=== PATIENT | male | born 1950 | race Caucasian/White ===

== ENCOUNTER 2021-10-17 12:36 | Outpatient (RCR) | payer MEDICARE, SELFPAY | END 2022-04-13 14:30 | disposition home or self-care (01) | LOC: HO.WCC 12:36 | PROVIDERS: PCP Internal Medicine; Visit Provider Physician Assistant | DX: E11.621 Type 2 diabetes mellitus with foot ulcer (principal); L97.522 Non-pressure chronic ulcer of other part of left foot with fat layer exposed; T87.81 Dehiscence of amputation stump; E11.51 Type 2 diabetes mellitus with diabetic peripheral angiopathy without gangrene; E11.610 Type 2 diabetes mellitus with diabetic neuropathic arthropathy; E11.40 Type 2 diabetes mellitus with diabetic neuropathy, unspecified; E11.69 Type 2 diabetes mellitus with other specified complication; M86.472 Chronic osteomyelitis with draining sinus, left ankle and foot; I25.2 Old myocardial infarction; Z87.891 Personal history of nicotine dependence; Z89.422 Acquired absence of other left toe(s) | CPT/HCPCS: 11042; 97597; 99212 ==